=== PATIENT | female | born 1960 | race Two or more races ===

== ENCOUNTER 2020-02-13 07:23 | Day surgery (SDC) | payer OTHER ==
[~2020-02-13 07:23] MED LIST: ATACAND4 MG PO; CARVEDILOL12.5 MG; SINGULAIR10 MG PO; SYMBICORT 16010.2 GM IH
== END 2020-02-13 19:30 | disposition home or self-care (01) ==
LOC: CIR.AMB 07:23 → SURH 11:28 → CIR.AMB 19:30 → EDSTATUS 20:15 → SURH 20:15 → CIR.AMB 20:15
PROVIDERS: ATTEND Orthopaedic Surgery Hand Surgery
DX: S52.532A Colles' fracture of left radius, initial encounter for closed fracture (principal); Z20.828 Contact with and (suspected) exposure to other viral communicable diseases
CPT/HCPCS: 25609; 25118; 25280; C1776